=== PATIENT | male | born 1955 | race Caucasian/White ===

== ENCOUNTER 2022-01-20 08:15 | Emergency (ER) | payer BC ==
[2022-01-20 08:31] VITALS: BP 164/71; PULSE 65
[2022-01-20] MEDS ORDERED: Aspirin 81 MG Tab.Chew PO ONE (08:50)
[2022-01-20 09:27] LABS: ESTIMATED GFR 95 mL/min (>60)
== END 2022-01-20 09:58 | disposition home or self-care (01) ==
LOC: JP.ED 08:15
DX: U07.1 COVID-19 (principal); R42 Dizziness and giddiness; E11.65 Type 2 diabetes mellitus with hyperglycemia; I10 Essential (primary) hypertension; R11.0 Nausea; Z79.899 Other long term (current) drug therapy; Z79.82 Long term (current) use of aspirin
CPT/HCPCS: 36415; 71045; 80053; 83735; 84484; 85025; 86140; 93005; 93010; 99283; 99284; A9270

== ENCOUNTER 2022-04-17 07:48 | Day surgery (SDC) | payer BC ==
[~2022-04-17 07:48] MED LIST: Acetaminophen 500 MG Tab PO ONE; Bacitracin Oint 1 GM U/D Packet ONE; Bupivacaine 0.5% 50 ML MDV ONE; Lidocaine 1% with EPINEPHrine 1:100,000 50 ML MDV ONE
[2022-04-17] MEDS ORDERED: Dextrose 5%-Lactated Ringers 1,000 ML IV SCH (08:30)
[2022-04-17] MEDS ORDERED: ceFAZolin 2 GM in Premix Bag 1 BAG IV ONE (08:30)
[2022-04-17] MEDS ORDERED: Propofol 200 MG/20 ML SDV ONE ×3 (09:44→10:33)
[2022-04-17] MEDS ORDERED: fentaNYL 100 MCG/2 ML SDV ONE (09:44)
[2022-04-17] MEDS ORDERED: Midazolam 1 MG/ML 2 ML SDV ONE (09:44)
[2022-04-17] MEDS ORDERED: Linezolid 600 MG/300 ML Premix Bag IRR ONE (10:20)
[2022-04-17 11:35] VITALS: BP 125/72; PULSE 64
== END 2022-04-17 11:58 | disposition home or self-care (01) ==
LOC: JP.SDS 07:48
PROVIDERS: ATTEND Surgery
DX: D17.0 Benign lipomatous neoplasm of skin and subcutaneous tissue of head, face and neck (principal); I10 Essential (primary) hypertension; E78.5 Hyperlipidemia, unspecified; E66.9 Obesity, unspecified; E11.9 Type 2 diabetes mellitus without complications; N40.0 Benign prostatic hyperplasia without lower urinary tract symptoms; Z68.35 Body mass index [BMI] 35.0-35.9, adult; Z79.899 Other long term (current) drug therapy
CPT/HCPCS: 21014; 88304; A9270; J0690; J2020; J2250; J2704; J3010; J3490; J7121

== ENCOUNTER 2022-10-24 07:23 | Day surgery (SDC) | payer BC ==
[2022-10-24] MEDS ORDERED: Propofol 200 MG/20 ML SDV ONE ×2 (07:47→09:41)
[2022-10-24] MEDS ORDERED: Midazolam 1 MG/ML 2 ML SDV ONE (07:47)
[2022-10-24] MEDS ORDERED: fentaNYL 50 MCG/ML SDV ONE (07:48)
[2022-10-24] MEDS ORDERED: Dextrose 5%-Lactated Ringers 1,000 ML IV SCH (08:00)
[2022-10-24 10:34] VITALS: BP 131/80; PULSE 62
== END 2022-10-24 10:53 | disposition home or self-care (01) ==
LOC: JP.SDS 07:23
PROVIDERS: ATTEND Family Medicine
DX: D12.5 Benign neoplasm of sigmoid colon (principal); K57.30 Diverticulosis of large intestine without perforation or abscess without bleeding; I10 Essential (primary) hypertension
CPT/HCPCS: 45380; 88305; J2250; J2704; J3010; J7121

== ENCOUNTER 2022-10-25 06:29 | Day surgery (SDC) | payer BC ==
[2022-10-25] MEDS ORDERED: Dextrose 5%-Lactated Ringers 1,000 ML IV SCH (07:00)
[2022-10-25] MEDS ORDERED: Propofol 200 MG/20 ML SDV ONE (07:15)
[2022-10-25] MEDS ORDERED: fentaNYL 50 MCG/ML SDV ONE (07:15)
[2022-10-25] MEDS ORDERED: Midazolam 1 MG/ML 2 ML SDV ONE (07:15)
[2022-10-25 08:54] VITALS: BP 120/79; PULSE 64
== END 2022-10-25 08:55 | disposition home or self-care (01) ==
LOC: JP.SDS 06:29
PROVIDERS: ATTEND Family Medicine
DX: D12.5 Benign neoplasm of sigmoid colon (principal); K57.30 Diverticulosis of large intestine without perforation or abscess without bleeding; I10 Essential (primary) hypertension; I25.10 Atherosclerotic heart disease of native coronary artery without angina pectoris; E78.5 Hyperlipidemia, unspecified; E11.9 Type 2 diabetes mellitus without complications; E66.9 Obesity, unspecified; Z68.35 Body mass index [BMI] 35.0-35.9, adult; Z98.890 Other specified postprocedural states; Z79.899 Other long term (current) drug therapy; Z95.5 Presence of coronary angioplasty implant and graft
CPT/HCPCS: 88305; 88341; 88342; J2250; J2704; J3010; J7121